=== PATIENT | male | born 1955 | race Caucasian/White ===

== ENCOUNTER 2017-12-14 16:23 | Emergency (ER) | payer OTHER ==
--- NOTE | 2017-12-14 17:22 | EDM.PDOC ---
ED HPI GENERAL MEDICAL PROBLEM - General Chief Complaint: Respiratory Problem Stated Complaint: PT HAS FLU SYMPTOMS Time Seen by Provider: 12/14/17 17:05 Source of Information: Reports: Patient History Limitations: Reports: No Limitations - History of Present Illness INITIAL COMMENTS - FREE TEXT/NARRATIVE: HISTORY AND PHYSICAL: History of present illness: [Patient comes to the emergency room complaining of body aches, headache, dry hacking cough, fever and chills for the past 3 days. He has not been taking any medications for his symptoms, but has been taking his regular prescribed medications. Denies chest pain, shortness of breath and difficulty breathing. No abdominal pain, nausea or vomiting. He does not have much appetite due to his symptoms. Denies earaches, runny nose and sore throat. Suspects that he may have influenza. History of VT approximately 6 months ago.] Review of systems: As per history of present illness and below otherwise all systems reviewed and negative. Past medical history: As per history of present illness and as reviewed below otherwise noncontributory. Surgical history: As per history of present illness and as reviewed below otherwise noncontributory. Social history: No reported history of drug or alcohol abuse. Family history: As per history of present illness and as reviewed below otherwise noncontributory. Physical exam: HEENT: Atraumatic, normocephalic. TMs are pearly basurto and without erythema or effusion. Oral mucous membranes are pink and moist. No tonsillar swelling erythema or exudate. Neck supple, no lymphadenopathy. Lungs: Clear to auscultation, breath sounds equal bilaterally. No wheezing crackles or rales. Heart: S1S2, regular rate and rhythm. Abdomen: Soft, nondistended, nontender. Pelvis: Stable nontender. Genitourinary: Deferred. Rectal: Deferred. Extremities: Atraumatic. Neurovascular unremarkable. Neuro: Awake, alert, oriented. Motor and sensory unremarkable throughout. Exam nonfocal. Diagnostics: [Influenza swab] Impression: [Viral illness] Plan: [Influenza swab is negative. Discussed with patient that he appears to have a virus and recommend symptomatic treatment. Push fluids, get plenty of rest. Tylenol alternating with ibuprofen as needed for fever or discomfort. patients in agreement with today's plan. All questions are answered and concerns are addressed.] Definitive disposition and diagnosis as appropriate pending reevaluation and review of above. - Related Data Allergies Allergy/AdvReac Type Severity Reaction Status Date / Time No Known Allergies Allergy Verified 12/14/17 16:55 Home Meds: Home Meds Aspirin 1 tab PO DAILY 12/14/17 [History] Clopidogrel [Plavix] 75 mg PO DAILY 12/14/17 [History] Isosorbide Mononitrate [Imdur] 30 mg PO DAILY 12/14/17 [History] Metoprolol Succinate [Toprol XL] 25 mg PO DAILY 12/14/17 [History] Pioglitazone [Actos] 30 mg PO DAILY 12/14/17 [History] metFORMIN [Glucophage] 850 mg PO DAILY 12/14/17 [History] Past Medical History - Past Health History Medical/Surgical History: Denies Medical/Surgical History Cardiovascular History: Reports: Hypertension Endocrine/Metabolic History: Reports: Diabetes, Type II Social & Family History - Family History Family Medical History: Noncontributory - Tobacco Use Smoking Status *Q: Current Every Day Smoker Years of Tobacco use: 45 Packs/Tins Daily: 1 - Recreational Drug Use Recreational Drug Use: No ED ROS GENERAL - Review of Systems Review Of Systems: ROS reveals no pertinent complaints other than HPI. ED EXAM, GENERAL - Physical Exam Exam: See Below Course - Vital Signs Last Recorded V/S: Last Vital Signs Temp 99.5 F 12/14/17 18:17 Pulse 95 12/14/17 18:17 Resp 18 12/14/17 18:17 BP 178/89 H 12/14/17 18:17 Pulse Ox 92 L 12/14/17 18:17 Departure - Departure Time of Disposition: 18:10 Disposition: Home, Self-Care 01 Condition: Good Clinical Impression: Viral illness - Discharge Information Instructions: Viral Respiratory Infection, [id number] Referrals: PCP,None [Primary Care Provider] - Forms: ED Department Discharge Additional Instructions: The following information is given to patients seen in the emergency department who are being discharged to home. This information is to outline your options for follow-up care. We provide all patients seen in our emergency department with a follow-up referral. The need for follow-up, as well as the timing and circumstances, are variable depending upon the specifics of your emergency department visit. If you don't have a primary care physician on staff, we will provide you with a referral. We always advise you to contact your personal physician following an emergency department visit to inform them of the circumstance of the visit and for follow-up with them and/or the need for any referrals to a consulting specialist. The emergency department will also refer you to a specialist when appropriate. This referral assures that you have the opportunity for follow-up care with a specialist. All of these measure are taken in an effort to provide you with optimal care, which includes your follow-up. Under all circumstances we always encourage you to contact your private physician who remains a resource for coordinating your care. When calling for follow-up care, please make the office aware that this follow-up is from your recent emergency room visit. If for any reason you are refused follow-up, please contact the [facility] emergency department at and asked to speak to the emergency department charge nurse. [facility] [address] [place] [id number] Follow-up with your primary care provider at the clinic listed above in 48-72 hours. Push fluids, get plenty of rest. Tylenol as needed for fever or discomfort. Return to ER as needed as discussed.
== END 2017-12-14 18:17 | disposition home or self-care (01) ==
LOC: MW.ED 16:23
DX: B34.9 Viral infection, unspecified (principal); I10 Essential (primary) hypertension; E11.9 Type 2 diabetes mellitus without complications; F17.210 Nicotine dependence, cigarettes, uncomplicated; Z79.82 Long term (current) use of aspirin; Z79.84 Long term (current) use of oral hypoglycemic drugs; Z79.899 Other long term (current) drug therapy
CPT/HCPCS: 87804; 99283

== ENCOUNTER 2018-07-02 12:26 | Observation (INO) | payer OTHER ==
[2018-07-02] MEDS ORDERED: Sodium Chloride 0.9% 10 ML Syringe FLUSH PRN ×2 (12:40→17:04)
[2018-07-02] MEDS ORDERED: Albuterol/Ipratropium 3.0-0.5 MG/3 ML Neb Soln NEB ONE (12:40)
[2018-07-02] MEDS ORDERED: Sodium Chloride 0.9% 2.5 ML Syringe FLUSH PRN ×2 (12:40→17:04)
[2018-07-02] MEDS ORDERED: Aspirin 81 MG Tab.Chew PO ONE (12:40)
--- NOTE | 2018-07-02 12:44 | EDM.PDOC ---
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 The patient tells me his last heart catheter was the beginning of November of this year and they did not have to do a stent and everything looked "good". He says he is compliant with his medications and he is here working. He says that he had a normal day yesterday and awoke this morning and was having a normal morning when at partially 9 AM, 3-1/2 hours ago he started having left-sided chest pain and pressure which he rated as a 5/10. He said he did radiate to his right shoulder but he didn't go to his jaw or back. There was no associated nausea vomiting or diaphoresis no lightheadedness and no shortness of breath. The patient took 3 baby aspirin at home and does not have nitroglycerin to take for chest pain. Because it persisted he came here but it is now rated as a 2/10 and his pressure the patient says he has no pulmonary disease but he does smoke a pack of cigarettes a day for a long time. Patient denies any drug use or alcohol use. He's had no upper respiratory symptoms no abdominal complaints and says that when he is at work here in [place] [employer] he does get some edema of his legs which is not new or different. He has no calf pain. Really he says the discomfort is minimal at a 2/10. Review of systems: As per history of present illness and below otherwise all systems reviewed and negative. Past medical history: As per history of present illness and as reviewed below otherwise noncontributory. Surgical history: As per history of present illness and as reviewed below otherwise noncontributory. Social history: No reported history of drug or alcohol abuse. Family history: As per history of present illness and as reviewed below otherwise noncontributory. Physical exam: General: Well-developed well-nourished overweight man who is nontoxic and speaking clearly in the ED. He has some noisy breathing on my evaluation and he is in good spirits and cooperative. HEENT: Atraumatic, normocephalic, negative for conjunctival pallor or scleral icterus, mucous membranes moist, throat clear, neck supple, nontender, trachea midline. Lungs: Clear to auscultation with diminished air exchange in the bases and some fine expiratory wheezing bilaterally, breath sounds equal bilaterally, chest nontender. Heart: S1S2, regular rate and rhythm no overt murmurs Abdomen: Soft, nondistended, nontender. Negative for masses or hepatosplenomegaly. NABS Pelvis: Stable nontender. Genitourinary: Deferred. Rectal: Deferred. Extremities: Atraumatic, negative for cords or calf pain. Neurovascular unremarkable. 1+ pitting edema bilaterally but there is no leg asymmetry or tenderness. Neuro: Awake, alert, oriented. Cranial nerves II through XII unremarkable. Cerebellum unremarkable. Motor and sensory unremarkable throughout. Exam nonfocal. Skin: There are no overt rashes or lesions and no diaphoresis turgor is normal Diagnostics: EKG chest x-ray CBC CMP INR troponin BNP Therapeutics: IV O2 monitor dual neb one baby aspirin, patient took 3 baby aspirins prior to coming here, nitroglycerin sublingual, nitroglycerin paste Patient states that after 1 nitroglycerin his pain is "almost gone" so he was given a second nitroglycerin sublingual and will get 1 inch of nitro paste. I will continue to monitor his workup and disposition appropriately He Has been pain-free and case was discussed with the hospitalist Dr. Awad at 1410 who accepts the patient for admission. He is aware of all testing care results and the need for admission and is excepting. Impression: Chest pain rule out ACS Definitive disposition and diagnosis as appropriate pending reevaluation and review of above. chest Pain Score (Numeric/FACES): 2 - Related Data Allergies Allergy/AdvReac Type Severity Reaction Status Date / Time No Known Allergies Allergy Verified 07/02/18 12:37 Home Meds: Home Meds Aspirin 1 tab PO DAILY 12/14/17 [History] Clopidogrel [Plavix] 75 mg PO DAILY 12/14/17 [History] Isosorbide Mononitrate [Imdur] 30 mg PO DAILY 12/14/17 [History] Metoprolol Succinate [Toprol XL] 25 mg PO DAILY 12/14/17 [History] Pioglitazone [Actos] 30 mg PO DAILY 12/14/17 [History] metFORMIN [Glucophage] 850 mg PO DAILY 12/14/17 [History] Past Medical History - Past Health History Medical/Surgical History: Denies Medical/Surgical History Cardiovascular History: Reports: Hypertension Endocrine/Metabolic History: Reports: Diabetes, Type II Social & Family History - Family History Family Medical History: Noncontributory ED ROS GENERAL - Review of Systems Review Of Systems: ROS reveals no pertinent complaints other than HPI. ED EXAM, GENERAL - Physical Exam Exam: See Below (See dictation) Course - Vital Signs Last Recorded V/S: Last Vital Signs Temp 36.9 C 07/02/18 12:34 Pulse 91 07/02/18 12:34 Resp 14 07/02/18 12:34 BP 170/89 H 07/02/18 12:50 Pulse Ox 94 L 07/02/18 12:34 - Orders/Labs/Meds Orders: Active Orders 24 hr Category Date Time Status Patient Status [ADT] Stat ADT 07/02/18 14:10 Ordered Cardiac Monitoring [RC] . DIRECTED Care 07/02/18 12:39 Active EKG Documentation Completion [RC] STAT Care 07/02/18 12:39 Active Oxygen Therapy, ED [RC] ASDIRECTED Care 07/02/18 12:39 Active Pulse Oximetry [RC] ASDIRECTED Care 07/02/18 12:39 Active RT Aerosol Therapy [RC] ASDIRECTED Care 07/02/18 12:40 Active Nitroglycerin [Nitrostat] Med 07/02/18 12:40 Active 0.4 mg SL Q5M PRN Sodium Chloride 0.9% [Saline Flush] Med 07/02/18 12:40 Active 10 ml FLUSH ASDIRECTED PRN Sodium Chloride 0.9% [Saline Flush] Med 07/02/18 12:40 Active 2.5 ml FLUSH ASDIRECTED PRN Saline Lock Insert [OM.PC] Stat Oth 07/02/18 12:39 Ordered Medication Orders Nitroglycerin (Nitrostat) 0.4 mg SL Q5M PRN PRN Reason: Chest Pain Last Admin: 07/02/18 12:50 Dose: 0.4 mg Admin: 07/02/18 12:45 Dose: 0.4 mg Sodium Chloride (Saline Flush) 10 ml FLUSH ASDIRECTED PRN PRN Reason: Keep Vein Open Sodium Chloride (Saline Flush) 2.5 ml FLUSH ASDIRECTED PRN PRN Reason: Keep Vein Open Labs: Laboratory Tests 07/02/18 07/02/18 07/02/18 Range/Units 12:39 12:39 12:39 WBC 11.59 H (4.0-11.0) K/uL RBC 5.54 (4.50-5.90) M/uL Hgb 16.9 (13.0-17.0) g/dL Hct 49.5 (38.0-50.0) % MCV 89.4 (80.0-98.0) fL MCH 30.5 (27.0-32.0) pg MCHC 34.1 (31.0-37.0) g/dL RDW Std Deviation 45.1 (28.0-62.0) fl RDW Coeff of [place] 14 (11.0-15.0) % Plt Count 158 (150-400) K/uL MPV 10.50 (7.40-12.00) fL Neut % (Auto) 74.1 (48.0-80.0) % Lymph % (Auto) 17.6 (16.0-40.0) % [place] % (Auto) 7.2 (0.0-15.0) % Eos % (Auto) 0.9 (0.0-7.0) % Baso % (Auto) 0.2 (0.0-1.5) % Neut # (Auto) 8.6 H (1.4-5.7) K/uL Lymph # (Auto) 2.0 (0.6-2.4) K/uL [place] # (Auto) 0.8 (0.0-0.8) K/uL Eos # (Auto) 0.1 (0.0-0.7) K/uL Baso # (Auto) 0.0 (0.0-0.1) K/uL Nucleated RBC % 0.0 /100WBC Nucleated RBCs # 0 K/uL INR 1.07 Sodium 137 (136-148) mmol/L Potassium 3.9 (3.5-5.1) mmol/L Chloride 101 (98-107) mmol/L Carbon Dioxide 27.1 (21.0-32.0) mmol/L BUN 15 (7.0-18.0) mg/dL Creatinine 1.0 (0.8-1.3) mg/dL Est Cr Clr Drug Dosing 81.11 mL/min Estimated GFR (MDRD) > 60.0 ml/min Glucose 143 H (74-106) mg/dL Calcium 9.6 (8.5-10.1) mg/dL Total Bilirubin 0.5 (0.2-1.0) mg/dL AST 16 (15-37) IU/L ALT 31 (14-63) IU/L Alkaline Phosphatase 105 (46-116) U/L Troponin I < 0.050 (0.000-0.056) ng/mL B-Natriuretic Peptide (<100) PG/ML Total Protein 8.0 (6.4-8.2) g/dL Albumin 4.0 (3.4-5.0) g/dL Globulin 4.0 H (2.0-3.5) g/dL Albumin/Globulin Ratio 1.0 L (1.3-2.8) 07/02/18 Range/Units 12:39 WBC (4.0-11.0) K/uL RBC (4.50-5.90) M/uL Hgb (13.0-17.0) g/dL Hct (38.0-50.0) % MCV (80.0-98.0) fL MCH (27.0-32.0) pg MCHC (31.0-37.0) g/dL RDW Std Deviation (28.0-62.0) fl RDW Coeff of [place] (11.0-15.0) % Plt Count (150-400) K/uL MPV (7.40-12.00) fL Neut % (Auto) (48.0-80.0) % Lymph % (Auto) (16.0-40.0) % [place] % (Auto) (0.0-15.0) % Eos % (Auto) (0.0-7.0) % Baso % (Auto) (0.0-1.5) % Neut # (Auto) (1.4-5.7) K/uL Lymph # (Auto) (0.6-2.4) K/uL [place] # (Auto) (0.0-0.8) K/uL Eos # (Auto) (0.0-0.7) K/uL Baso # (Auto) (0.0-0.1) K/uL Nucleated RBC % /100WBC Nucleated RBCs # K/uL INR Sodium (136-148) mmol/L Potassium (3.5-5.1) mmol/L Chloride (98-107) mmol/L Carbon Dioxide (21.0-32.0) mmol/L BUN (7.0-18.0) mg/dL Creatinine (0.8-1.3) mg/dL Est Cr Clr Drug Dosing mL/min Estimated GFR (MDRD) ml/min Glucose (74-106) mg/dL Calcium (8.5-10.1) mg/dL Total Bilirubin (0.2-1.0) mg/dL AST (15-37) IU/L ALT (14-63) IU/L Alkaline Phosphatase (46-116) U/L Troponin I (0.000-0.056) ng/mL B-Natriuretic Peptide 56 (<100) PG/ML Total Protein (6.4-8.2) g/dL Albumin (3.4-5.0) g/dL Globulin (2.0-3.5) g/dL Albumin/Globulin Ratio (1.3-2.8) Meds: Medications Generic Name Dose Route Start Last Admin Trade Name Freq PRN Reason Stop Dose Admin Nitroglycerin 0.4 mg 07/02/18 12:40 07/02/18 12:50 Nitrostat SL 0.4 mg Q5M PRN Administration Chest Pain Sodium Chloride 10 ml 07/02/18 12:40 Saline Flush FLUSH ASDIRECTED PRN Keep Vein Open Sodium Chloride 2.5 ml 07/02/18 12:40 Saline Flush FLUSH ASDIRECTED PRN Keep Vein Open Discontinued Medications Generic Name Dose Route Start Last Admin Trade Name Freq PRN Reason Stop Dose Admin Albuterol/Ipratropium 3 ml 07/02/18 12:40 07/02/18 12:46 Duoneb 3.0-0.5 Mg/3 Ml NEB 07/02/18 12:41 3 ml ONETIME ONE Administration Aspirin 81 mg 07/02/18 12:40 07/02/18 12:44 Aspirin PO 07/02/18 12:41 81 mg ONETIME ONE Administration Nitroglycerin 1 gm 07/02/18 12:52 07/02/18 12:59 Nitro-Bid 2% TOP 07/02/18 12:53 1 gm ONETIME ONE Administration Departure - Departure Time of Disposition: 14:17 Disposition: Refer to Observation Condition: Good Clinical Impression: Acute coronary syndrome - Discharge Information Forms: ED Department Discharge - My Orders Last 24 Hours: My Active Orders 07/02/18 12:39 Cardiac Monitoring [RC] . DIRECTED EKG Documentation Completion [RC] STAT Oxygen Therapy, ED [RC] ASDIRECTED Pulse Oximetry [RC] ASDIRECTED Saline Lock Insert [OM.PC] Stat 07/02/18 12:40 RT Aerosol Therapy [RC] ASDIRECTED Nitroglycerin [Nitrostat] 0.4 mg SL Q5M PRN Sodium Chloride 0.9% [Saline Flush] 10 ml FLUSH ASDIRECTED PRN Sodium Chloride 0.9% [Saline Flush] 2.5 ml FLUSH ASDIRECTED PRN 07/02/18 14:10 Patient Status [ADT] Stat - Assessment/Plan Last 24 Hours: My Active Orders 07/02/18 12:39 Cardiac Monitoring [RC] . DIRECTED EKG Documentation Completion [RC] STAT Oxygen Therapy, ED [RC] ASDIRECTED Pulse Oximetry [RC] ASDIRECTED Saline Lock Insert [OM.PC] Stat 07/02/18 12:40 RT Aerosol Therapy [RC] ASDIRECTED Nitroglycerin [Nitrostat] 0.4 mg SL Q5M PRN Sodium Chloride 0.9% [Saline Flush] 10 ml FLUSH ASDIRECTED PRN Sodium Chloride 0.9% [Saline Flush] 2.5 ml FLUSH ASDIRECTED PRN 07/02/18 14:10 Patient Status [ADT] Stat
[2018-07-02] MEDS: Nitroglycerin 0.4 MG Tab.SL SL PRN ×2 (12:45→12:50)
[2018-07-02] MEDS ORDERED: Nitroglycerin 2% Oint 1 GM UD Packet TOP ONE (12:52)
[2018-07-02 13:51] LABS: CHLORIDE,CL 101 mmol/L (98-107); SODIUM,NA 137 mmol/L (136-148)
--- NOTE | 2018-07-02 14:00 | CR ---
EXAMINATION: Portable chest radiograph. HISTORY: Shortness of breath. FINDINGS: The trachea is midline. The cardiomediastinal silhouette is within normal limits. No pulmonary infilt rates, effusions or pneumothorax. Mild bibasilar atelectasis and/or infiltrate. Osseous structures appear unremarkable. IMPRESSION: Mild bibasilar atelectasis and/or infiltrate.
[2018-07-02] MEDS ORDERED: Acetaminophen 325 MG Tab PO PRN (17:04)
[2018-07-02] MEDS ORDERED: Morphine 2 MG/ML Syringe IVPUSH PRN (17:04)
[2018-07-02] MEDS ORDERED: atorvaSTATin 40 MG Tab PO ONE (18:10)
[2018-07-02] MEDS ORDERED: Labetalol 100 MG/20 ML MDV IVPUSH PRN (19:31)
[2018-07-02] MEDS ORDERED: Labetalol 20 MG/4 ML Syringe ONE (20:15)
--- NOTE | 2018-07-02 22:02 | PCM.HP ---
H&P History of Present Illness - General Date of Service: 07/02/18 Admit Problem/Dx: Admission Diagnosis/Problem Admission Diagnosis/Problem Acute coronary syndrome Source of Information: Patient History Limitations: Reports: No Limitations - History of Present Illness Initial Comments - Free Text/Narative: Patient 62 y old man with Hx of VA in April 2017 s/p stent in [place] who is still smoking 1 PPD presented to ER today due to chest pain that was localized left side of chest and was pressure-like 5/10 intensity. Patient already smoked few ciggarets by the time the chest pain started. 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 His pain lasted for about 3 h as per patient and was getting better , subsided completely in Er with Nitroglycerin. Patient BP at arrival in Er was 233/127 Hr91. He had stress test done in November 2017 and was told was normal Duration of Symptoms: Reports: Hour(s): Location: Reports: Chest Quality: Reports: Pressure chest Pain Score (Numeric/FACES): 2 - Related Data Allergies/Adverse Reactions: Allergies Allergy/AdvReac Type Severity Reaction Status Date / Time No Known Allergies Allergy Verified 07/02/18 12:37 Home Medications: Home Meds Aspirin 1 tab PO DAILY 12/14/17 [History] Clopidogrel [Plavix] 75 mg PO DAILY 12/14/17 [History] Isosorbide Mononitrate [Imdur] 30 mg PO DAILY 12/14/17 [History] Metoprolol Succinate [Toprol XL] 25 mg PO DAILY 12/14/17 [History] Pioglitazone [Actos] 30 mg PO DAILY 12/14/17 [History] metFORMIN [Glucophage] 850 mg PO DAILY 12/14/17 [History] Past Medical History - Past Health History Medical/Surgical History: Denies Medical/Surgical History Cardiovascular History: Reports: Hypertension, [place] Endocrine/Metabolic History: Reports: Diabetes, Type II - Infectious Disease History Infectious Disease History: Reports: Chicken Pox, Measles, Mumps, Shingles - Past Surgical History Cardiovascular Surgical History: Reports: Other (See Below) Other Cardiovascular Surgeries/Procedures: stent april 2017 Social & Family History - Family History Family Medical History: Noncontributory - Tobacco Use Smoking Status *Q: Current Every Day Smoker Years of Tobacco use: 40 Packs/Tins Daily: 1 Used Tobacco, but Quit: No Second Hand Smoke Exposure: No - Caffeine Use Caffeine Use: Reports: Soda - Alcohol Use Days Per Week of Alcohol Use: 1 Number of Drinks Per Day: 6 Total Drinks Per Week: 6 - Recreational Drug Use Recreational Drug Use: No H&P Review of Systems - Review of Systems: Review Of Systems: See Below General: Reports: No Symptoms HEENT: Reports: No Symptoms Pulmonary: Reports: No Symptoms Cardiovascular: Reports: Chest Pain Gastrointestinal: Reports: No Symptoms Genitourinary: Reports: No Symptoms Musculoskeletal: Reports: No Symptoms Skin: Reports: No Symptoms Psychiatric: Reports: No Symptoms Hematologic/Lymphatic: Reports: No Symptoms Exam - Exam Exam: See Below - Vital Signs Vital Signs: Last Vital Signs Temp 97.3 F 07/02/18 19:57 Pulse 71 07/02/18 20:59 Resp 18 07/02/18 19:57 BP 185/89 H 07/02/18 20:59 Pulse Ox 93 L 07/02/18 19:57 Weight: 298 lb 8 oz - Exam General: Alert, Oriented HEENT: Conjunctiva Clear Neck: Supple, Trachea Midline Lungs: Decreased Breath Sounds Cardiovascular: Regular Rate, Regular Rhythm, Normal S1, Normal S2 GI/Abdominal Exam: Normal Bowel Sounds, Soft, Non-Tender, No Organomegaly Back Exam: Normal Inspection Extremities: Normal Inspection, Normal Range of Motion Skin: Warm, Dry Neurological: Cranial Nerves Intact Neuro Extensive - Mental Status: Alert, Oriented x3 Neuro Extensive - Motor, Sensory, Reflexes: CN II-XII Intact Psychiatric: Alert, Normal Affect - Patient Data Lab Results Last 24 hrs: Laboratory Results - last 24 hr 07/02/18 07/02/18 07/02/18 Range/Units 12:39 12:39 12:39 WBC 11.59 H (4.0-11.0) K/uL RBC 5.54 (4.50-5.90) M/uL Hgb 16.9 (13.0-17.0) g/dL Hct 49.5 (38.0-50.0) % MCV 89.4 (80.0-98.0) fL MCH 30.5 (27.0-32.0) pg MCHC 34.1 (31.0-37.0) g/dL RDW Std Deviation 45.1 (28.0-62.0) fl RDW Coeff of [place] 14 (11.0-15.0) % Plt Count 158 (150-400) K/uL MPV 10.50 (7.40-12.00) fL Neut % (Auto) 74.1 (48.0-80.0) % Lymph % (Auto) 17.6 (16.0-40.0) % [place] % (Auto) 7.2 (0.0-15.0) % Eos % (Auto) 0.9 (0.0-7.0) % Baso % (Auto) 0.2 (0.0-1.5) % Neut # (Auto) 8.6 H (1.4-5.7) K/uL Lymph # (Auto) 2.0 (0.6-2.4) K/uL [place] # (Auto) 0.8 (0.0-0.8) K/uL Eos # (Auto) 0.1 (0.0-0.7) K/uL Baso # (Auto) 0.0 (0.0-0.1) K/uL Nucleated RBC % 0.0 /100WBC Nucleated RBCs # 0 K/uL INR 1.07 Sodium 137 (136-148) mmol/L Potassium 3.9 (3.5-5.1) mmol/L Chloride 101 (98-107) mmol/L Carbon Dioxide 27.1 (21.0-32.0) mmol/L BUN 15 (7.0-18.0) mg/dL Creatinine 1.0 (0.8-1.3) mg/dL Est Cr Clr Drug Dosing 81.11 mL/min Estimated GFR (MDRD) > 60.0 ml/min Glucose 143 H (74-106) mg/dL Calcium 9.6 (8.5-10.1) mg/dL Total Bilirubin 0.5 (0.2-1.0) mg/dL AST 16 (15-37) IU/L ALT 31 (14-63) IU/L Alkaline Phosphatase 105 (46-116) U/L Troponin I < 0.050 (0.000-0.056) ng/mL B-Natriuretic Peptide (<100) PG/ML Total Protein 8.0 (6.4-8.2) g/dL Albumin 4.0 (3.4-5.0) g/dL Globulin 4.0 H (2.0-3.5) g/dL Albumin/Globulin Ratio 1.0 L (1.3-2.8) 07/02/18 07/02/18 Range/Units 12:39 18:15 WBC (4.0-11.0) K/uL RBC (4.50-5.90) M/uL Hgb (13.0-17.0) g/dL Hct (38.0-50.0) % MCV (80.0-98.0) fL MCH (27.0-32.0) pg MCHC (31.0-37.0) g/dL RDW Std Deviation (28.0-62.0) fl RDW Coeff of [place] (11.0-15.0) % Plt Count (150-400) K/uL MPV (7.40-12.00) fL Neut % (Auto) (48.0-80.0) % Lymph % (Auto) (16.0-40.0) % [place]ke[place] % (Auto) (0.0-15.0) % Eos % (Auto) (0.0-7.0) % Baso % (Auto) (0.0-1.5) % Neut # (Auto) (1.4-5.7) K/uL Lymph # (Auto) (0.6-2.4) K/uL [place]ke[place] # (Auto) (0.0-0.8) K/uL Eos # (Auto) (0.0-0.7) K/uL Baso # (Auto) (0.0-0.1) K/uL Nucleated RBC % /100WBC Nucleated RBCs # K/uL INR Sodium (136-148) mmol/L Potassium (3.5-5.1) mmol/L Chloride (98-107) mmol/L Carbon Dioxide (21.0-32.0) mmol/L BUN (7.0-18.0) mg/dL Creatinine (0.8-1.3) mg/dL Est Cr Clr Drug Dosing mL/min Estimated GFR (MDRD) ml/min Glucose (74-106) mg/dL Calcium (8.5-10.1) mg/dL Total Bilirubin (0.2-1.0) mg/dL AST (15-37) IU/L ALT (14-63) IU/L Alkaline Phosphatase (46-116) U/L Troponin I < 0.050 (0.000-0.056) ng/mL B-Natriuretic Peptide 56 (<100) PG/ML Total Protein (6.4-8.2) g/dL Albumin (3.4-5.0) g/dL Globulin (2.0-3.5) g/dL Albumin/Globulin Ratio (1.3-2.8) Result Diagrams: 07/02/18 12:39 07/02/18 12:39 EKG INTERPRETATION EKG Date: 07/01/18 Rhythm: NSR [place]: LAD-Left [place] Deviation P-Wave: Present QRS: Wide ST-T: Normal QT: Normal PA/PQ Interval: prolonged, inferior infarct - Problem List (1) Chest pain, rule out acute myocardial infarction SNOMED Code(s): 48414461 ICD Code: R07.9 - CHEST PAIN, UNSPECIFIED Status: Acute Current Visit: Yes (2) Diabetes mellitus, insulin dependent (IDDM), controlled SNOMED Code(s): 08973858 ICD Code: E11.9 - TYPE 2 DIABETES MELLITUS WITHOUT COMPLICATIONS; 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 Status: Acute Current Visit: Yes (3) History of heart artery stent SNOMED Code(s): 481566608, 686548061 ICD Code: Z95.5 - PRESENCE OF CORONARY ANGIOPLASTY IMPLANT AND GRAFT Status : Acute Current Visit: Yes (4) Hyperlipidemia SNOMED Code(s): 73572288 ICD Code: E78.5 - HYPERLIPIDEMIA, UNSPECIFIED Status: Acute Current Visit : Yes (5) Hypertension SNOMED Code(s): 62034088 ICD Code: I10 - ESSENTIAL (PRIMARY) HYPERTENSION Status: Acute Current Visit: Yes Qualifiers: Hypertension type: essential hypertension Qualified Code(s): I10 - Essential (primary) hypertension (6) Tobacco abuse disorder SNOMED Code(s): 584641021 ICD Code: Z72.0 - TOBACCO USE Status: Acute Current Visit: Yes (7) Hypertension, uncontrolled SNOMED Code(s): 54578328, 99460143 ICD Code: I10 - ESSENTIAL (PRIMARY) HYPERTENSION Status: Acute Current Visit: Yes Problem List Initiated/Reviewed/Updated: Yes Orders Last 24hrs: Active Orders 24 hr Category Date Time Status Patient Status [ADT] Stat ADT 07/02/18 14:10 Active Cardiac Monitoring [RC] . DIRECTED Care 07/02/18 12:39 Active Cardiac Monitoring [RC] CONTINUOUS Care 07/02/18 17:05 Active Communication Order [RC] DAILY Care 07/02/18 21:18 Active Oxygen Therapy [RC] PRN Care 07/02/18 17:04 Active Pulse Oximetry [RC] ASDIRECTED Care 07/02/18 12:39 Active Pulse Oximetry [RC] PRN Care 07/02/18 17:05 Active RT Aerosol Therapy [RC] ASDIRECTED Care 07/02/18 12:40 Active Telemetry Monitoring [Cardiac Monitoring] [RC] . Care 07/02/18 15:44 Active DIRECTED Up ad Priya [RC] ASDIRECTED Care 07/02/18 17:04 Active Vital Signs [RC] Q4H Care 07/02/18 17:04 Active Heart Healthy Diet [DIET] Diet 07/03/18 Breakfast Active CBC W/O DIFF,HEMOGRAM [HEME] AM Lab 07/03/18 05:11 Ordered CBC W/O DIFF,HEMOGRAM [HEME] AM Lab 07/04/18 05:11 Ordered CBC W/O DIFF,HEMOGRAM [HEME] AM Lab 07/05/18 05:11 Ordered COMPREHENSIVE METABOLIC PN,CMP [CHEM] AM Lab 07/03/18 05:11 Ordered COMPREHENSIVE METABOLIC PN,CMP [CHEM] AM Lab 07/04/18 05:11 Ordered COMPREHENSIVE METABOLIC PN,CMP [CHEM] AM Lab 07/05/18 05:11 Ordered COMPREHENSIVE METABOLIC PN,CMP [CHEM] AM Lab 07/06/18 05:11 Ordered TROPONIN I [CHEM] Q6H Lab 07/03/18 00:00 Ordered Acetaminophen [Tylenol] Med 07/02/18 17:04 Active 650 mg PO Q4H PRN Aspirin Med 07/03/18 09:00 Active 81 mg PO DAILY Clopidogrel [Plavix] Med 07/03/18 09:00 Active 75 mg PO DAILY Insulin Aspart [NovoLOG] Med 07/03/18 07:30 Active See Protocol SUBCUT TIDAC Isosorbide Mononitrate [Imdur] Med 07/03/18 09:00 Active 30 mg PO DAILY Labetalol [Normodyne] Med 07/02/18 19:31 Active 20 mg IVPUSH Q4H PRN Metoprolol Succinate [Toprol XL] Med 07/03/18 09:00 Active 25 mg PO DAILY Morphine Med 07/02/18 17:04 Active 2 mg IVPUSH Q2H PRN Nitroglycerin [Nitrostat] Med 07/02/18 12:40 Active 0.4 mg SL Q5M PRN Sodium Chloride 0.9% [Saline Flush] Med 07/02/18 12:40 Active 10 ml FLUSH ASDIRECTED PRN Sodium Chloride 0.9% [Saline Flush] Med 07/02/18 17:04 Active 10 ml FLUSH ASDIRECTED PRN Sodium Chloride 0.9% [Saline Flush] Med 07/02/18 12:40 Active 2.5 ml FLUSH ASDIRECTED PRN Sodium Chloride 0.9% [Saline Flush] Med 07/02/18 17:04 Active 2.5 ml FLUSH ASDIRECTED PRN Peripheral IV Insertion Adult [OM.PC] Routine Oth 07/02/18 17:04 Ordered Saline Lock Insert [OM.PC] Stat Oth 07/02/18 12:39 Ordered Sequential Compression Device [OM.PC] Per Unit Routine Oth 07/02/18 17:05 Ordered Resuscitation Status Routine Resus Stat 07/02/18 17:04 Ordered Medication Orders Acetaminophen (Tylenol) 650 mg PO Q4H PRN PRN Reason: Pain (Mild 1-3)/fever Aspirin (Aspirin) 81 mg PO DAILY [facility] Clopidogrel Bisulfate (Plavix) 75 mg PO DAILY [facility] Insulin Aspart (Novolog) 0 unit SUBCUT TIDAC [facility]; Protocol Isosorbide Mononitrate (Imdur) 30 mg PO DAILY [facility] Labetalol HCl (Normodyne) 20 mg IVPUSH Q4H PRN; Protocol PRN Reason: Hypertension Last Admin: 07/02/18 20:59 Dose: 20 mg Metoprolol Succinate (Toprol Xl) 25 mg PO DAILY [facility] Morphine Sulfate (Morphine) 2 mg IVPUSH Q2H PRN PRN Reason: Pain (severe 7-10) Stop: 07/03/18 17:06 Nitroglycerin (Nitrostat) 0.4 mg SL Q5M PRN PRN Reason: Chest Pain Last Admin: 07/02/18 12:50 Dose: 0.4 mg Admin: 07/02/18 12:45 Dose: 0.4 mg Sodium Chloride (Saline Flush) 10 ml FLUSH ASDIRECTED PRN PRN Reason: Keep Vein Open Sodium Chloride (Saline Flush) 2.5 ml FLUSH ASDIRECTED PRN PRN Reason: Keep Vein Open Sodium Chloride (Saline Flush) 10 ml FLUSH ASDIRECTED PRN PRN Reason: Keep Vein Open Sodium Chloride (Saline Flush) 2.5 ml FLUSH ASDIRECTED PRN PRN Reason: Keep Vein Open Unstable angina due to smoking and u/c HTN - will f/up cardiac enzymes times 3 , telemetry q 6 h , patient on aspirin and plavix , imdur 30 mg po daily , metoprolol 25 mg po daily patient was given one dose of atorvastaine 80 mg po , will continue patient with atorvastatin 80 mg po at bedtime . He was given in Er one dose of Lovenox 1mg/kg , will continue patient with lovenox full dose q 12 h , BP control .Patient was advised to stop smoking, lipid panel , Hb A1 c in am, cardiac ECHo For HtN urgency will give patient labetalol 20 mg iv q 4 h prn for SBP more than 160 For DM: insulin aspart on sliding scale ac TID and at bedtime, hold po medications
[2018-07-03 05:44] LABS: CHLORIDE,CL 104 mmol/L (98-107); SODIUM,NA 139 mmol/L (136-148)
[2018-07-03] MEDS: Enoxaparin 150 MG/1 ML Syringe SUBCUT SCH ×2 (06:03→18:10)
[2018-07-03] MEDS: Insulin Aspart 100 Units/ML 3 ML Pen SUBCUT SCH ×3 (07:30→17:33)
[2018-07-03] MEDS: Isosorbide Mononitrate 30 MG Tab.ER PO SCH (08:57)
[2018-07-03] MEDS: Aspirin 81 MG Tab.Chew PO SCH (08:58)
[2018-07-03] MEDS: Metoprolol Succinate 25 MG Tab.ER PO SCH (08:58)
[2018-07-03] MEDS: Clopidogrel 75 MG Tab PO SCH (08:58)
[2018-07-03] MEDS ORDERED: Hydrochlorothiazide/Losartan 12.5-50 mg Tab PO SCH (11:30)
[2018-07-03] MEDS ORDERED: Albuterol/Ipratropium 3.0-0.5 MG/3 ML Neb Soln NEB PRN (12:12)
--- NOTE | 2018-07-03 12:40 | PCM.PN ---
- General Info Date of Service: 07/03/18 Subjective Update: patient with no Cp , his BP in the morning elevated in 190 and repeat BP went down to 160. Patient was started on Losartan /HCTZ 50 mg po daily , BP still elevated , his BP medication was increased to 100/25 mg po daily. Bp still elevated in the evening , amlodipine 10 mg po was added. Patient snores at night , it was recommended sleep study . He will need sleep study prescription upon discharge. - Review of Systems General: Reports: No Symptoms HEENT: Reports: No Symptoms Pulmonary: Reports: Cough Cardiovascular: Reports: No Symptoms Gastrointestinal: Reports: No Symptoms Genitourinary: Reports: No Symptoms Musculoskeletal: Reports: No Symptoms Skin: Reports: No Symptoms Neurological: Reports: No Symptoms Psychiatric: Reports: No Symptoms - Patient Data Vitals - Most Recent: Last Vital Signs Temp 97.2 F 07/03/18 11:00 Pulse 69 07/03/18 11:00 Resp 18 07/03/18 11:00 BP 160/78 H 07/03/18 11:00 Pulse Ox 91 L 07/03/18 11:00 Weight - Most Recent: 298 lb 8 oz I&O - Last 24 Hours: Intake & Output 07/02/18 07/03/18 07/03/18 22:59 06:59 14:59 Intake Total 550 Output Total 600 Balance -50 Lab Results Last 24 Hours: Laboratory Results - last 24 hr 07/02/18 07/02/18 07/02/18 Range/Units 12:39 12:39 12:39 WBC 11.59 H (4.0-11.0) K/uL RBC 5.54 (4.50-5.90) M/uL Hgb 16.9 (13.0-17.0) g/dL Hct 49.5 (38.0-50.0) % MCV 89.4 (80.0-98.0) fL MCH 30.5 (27.0-32.0) pg MCHC 34.1 (31.0-37.0) g/dL RDW Std Deviation 45.1 (28.0-62.0) fl RDW Coeff of [place] 14 (11.0-15.0) % Plt Count 158 (150-400) K/uL MPV 10.50 (7.40-12.00) fL Neut % (Auto) 74.1 (48.0-80.0) % Lymph % (Auto) 17.6 (16.0-40.0) % [place] % (Auto) 7.2 (0.0-15.0) % Eos % (Auto) 0.9 (0.0-7.0) % Baso % (Auto) 0.2 (0.0-1.5) % Neut # (Auto) 8.6 H (1.4-5.7) K/uL Lymph # (Auto) 2.0 (0.6-2.4) K/uL [place] # (Auto) 0.8 (0.0-0.8) K/uL Eos # (Auto) 0.1 (0.0-0.7) K/uL Baso # (Auto) 0.0 (0.0-0.1) K/uL Nucleated RBC % 0.0 /100WBC Nucleated RBCs # 0 K/uL INR 1.07 Sodium 137 (136-148) mmol/L Potassium 3.9 (3.5-5.1) mmol/L Chloride 101 (98-107) mmol/L Carbon Dioxide 27.1 (21.0-32.0) mmol/L BUN 15 (7.0-18.0) mg/dL Creatinine 1.0 (0.8-1.3) mg/dL Est Cr Clr Drug Dosing 81.11 mL/min Estimated GFR (MDRD) > 60.0 ml/min Glucose 143 H (74-106) mg/dL POC Glucose (60-110) mg/dL Hemoglobin A1c (4.5-6.2) % Calcium 9.6 (8.5-10.1) mg/dL Total Bilirubin 0.5 (0.2-1.0) mg/dL AST 16 (15-37) IU/L ALT 31 (14-63) IU/L Alkaline Phosphatase 105 (46-116) U/L Troponin I < 0.050 (0.000-0.056) ng/mL B-Natriuretic Peptide (<100) PG/ML Total Protein 8.0 (6.4-8.2) g/dL Albumin 4.0 (3.4-5.0) g/dL Globulin 4.0 H (2.0-3.5) g/dL Albumin/Globulin Ratio 1.0 L (1.3-2.8) Triglycerides (0-200) mg/dL Cholesterol (50-200) mg/dL LDL Cholesterol, Calc (60-180) mg/dL VLDL Cholesterol (5-55) mg/dL HDL Cholesterol (40-60) mg/dL Cholesterol/HDL Ratio (3.3-6.0) 07/02/18 07/02/18 07/03/18 Range/Units 12:39 18:15 00:18 WBC (4.0-11.0) K/uL RBC (4.50-5.90) M/uL Hgb (13.0-17.0) g/dL Hct (38.0-50.0) % MCV (80.0-98.0) fL MCH (27.0-32.0) pg MCHC (31.0-37.0) g/dL RDW Std Deviation (28.0-62.0) fl RDW Coeff of [place] (11.0-15.0) % Plt Count (150-400) K/uL MPV (7.40-12.00) fL Neut % (Auto) (48.0-80.0) % Lymph % (Auto) (16.0-40.0) % [place] % (Auto) (0.0-15.0) % Eos % (Auto) (0.0-7.0) % Baso % (Auto) (0.0-1.5) % Neut # (Auto) (1.4-5.7) K/uL Lymph # (Auto) (0.6-2.4) K/uL [place] # (Auto) (0.0-0.8) K/uL Eos # (Auto) (0.0-0.7) K/uL Baso # (Auto) (0.0-0.1) K/uL Nucleated RBC % /100WBC Nucleated RBCs # K/uL INR Sodium (136-148) mmol/L Potassium (3.5-5.1) mmol/L Chloride (98-107) mmol/L Carbon Dioxide (21.0-32.0) mmol/L BUN (7.0-18.0) mg/dL Creatinine (0.8-1.3) mg/dL Est Cr Clr Drug Dosing mL/min Estimated GFR (MDRD) ml/min Glucose (74-106) mg/dL POC Glucose (60-110) mg/dL Hemoglobin A1c (4.5-6.2) % Calcium (8.5-10.1) mg/dL Total Bilirubin (0.2-1.0) mg/dL AST (15-37) IU/L ALT (14-63) IU/L Alkaline Phosphatase (46-116) U/L Troponin I < 0.050 < 0.050 (0.000-0.056) ng/mL B-Natriuretic Peptide 56 (<100) PG/ML Total Protein (6.4-8.2) g/dL Albumin (3.4-5.0) g/dL Globulin (2.0-3.5) g/dL Albumin/Globulin Ratio (1.3-2.8) Triglycerides (0-200) mg/dL Cholesterol (50-200) mg/dL LDL Cholesterol, Calc (60-180) mg/dL VLDL Cholesterol (5-55) mg/dL HDL Cholesterol (40-60) mg/dL Cholesterol/HDL Ratio (3.3-6.0) 07/03/18 07/03/18 07/03/18 Range/Units 04:50 04:50 04:50 WBC 9.16 (4.0-11.0) K/uL RBC 5.23 (4.50-5.90) M/uL Hgb 15.8 (13.0-17.0) g/dL Hct 46.9 (38.0-50.0) % MCV 89.7 (80.0-98.0) fL MCH 30.2 (27.0-32.0) pg MCHC 33.7 (31.0-37.0) g/dL RDW Std Deviation 45.5 (28.0-62.0) fl RDW Coeff of [place] 14 (11.0-15.0) % Plt Count 170 (150-400) K/uL MPV 10.40 (7.40-12.00) fL Neut % (Auto) (48.0-80.0) % Lymph % (Auto) (16.0-40.0) % [place] % (Auto) (0.0-15.0) % Eos % (Auto) (0.0-7.0) % Baso % (Auto) (0.0-1.5) % Neut # (Auto) (1.4-5.7) K/uL Lymph # (Auto) (0.6-2.4) K/uL [place] # (Auto) (0.0-0.8) K/uL Eos # (Auto) (0.0-0.7) K/uL Baso # (Auto) (0.0-0.1) K/uL Nucleated RBC % 0.0 /100WBC Nucleated RBCs # 0 K/uL INR Sodium 139 (136-148) mmol/L Potassium 4.0 (3.5-5.1) mmol/L Chloride 104 (98-107) mmol/L Carbon Dioxide 29.4 (21.0-32.0) mmol/L BUN 12 (7.0-18.0) mg/dL Creatinine 0.9 (0.8-1.3) mg/dL Est Cr Clr Drug Dosing 90.12 mL/min Estimated GFR (MDRD) > 60.0 ml/min Glucose 128 H (74-106) mg/dL POC Glucose (60-110) mg/dL Hemoglobin A1c 6.5 H (4.5-6.2) % Calcium 9.2 (8.5-10.1) mg/dL Total Bilirubin 0.7 (0.2-1.0) mg/dL AST 13 L (15-37) IU/L ALT 30 (14-63) IU/L Alkaline Phosphatase 99 (46-116) U/L Troponin I (0.000-0.056) ng/mL B-Natriuretic Peptide (<100) PG/ML Total Protein 7.4 (6.4-8.2) g/dL Albumin 3.7 (3.4-5.0) g/dL Globulin 3.7 H (2.0-3.5) g/dL Albumin/Globulin Ratio 1.0 L (1.3-2.8) Triglycerides 67 (0-200) mg/dL Cholesterol 115 (50-200) mg/dL LDL Cholesterol, Calc 62 (60-180) mg/dL VLDL Cholesterol 13 (5-55) mg/dL HDL Cholesterol 40 (40-60) mg/dL Cholesterol/HDL Ratio 2.9 L (3.3-6.0) 07/03/18 07/03/18 Range/Units 06:54 11:22 WBC (4.0-11.0) K/uL RBC (4.50-5.90) M/uL Hgb (13.0-17.0) g/dL Hct (38.0-50.0) % MCV (80.0-98.0) fL MCH (27.0-32.0) pg MCHC (31.0-37.0) g/dL RDW Std Deviation (28.0-62.0) fl RDW Coeff of [place] (11.0-15.0) % Plt Count (150-400) K/uL MPV (7.40-12.00) fL Neut % (Auto) (48.0-80.0) % Lymph % (Auto) (16.0-40.0) % [place] % (Auto) (0.0-15.0) % Eos % (Auto) (0.0-7.0) % Baso % (Auto) (0.0-1.5) % Neut # (Auto) (1.4-5.7) K/uL Lymph # (Auto) (0.6-2.4) K/uL [place] # (Auto) (0.0-0.8) K/uL Eos # (Auto) (0.0-0.7) K/uL Baso # (Auto) (0.0-0.1) K/uL Nucleated RBC % /100WBC Nucleated RBCs # K/uL INR Sodium (136-148) mmol/L Potassium (3.5-5.1) mmol/L Chloride (98-107) mmol/L Carbon Dioxide (21.0-32.0) mmol/L BUN (7.0-18.0) mg/dL Creatinine (0.8-1.3) mg/dL Est Cr Clr Drug Dosing mL/min Estimated GFR (MDRD) ml/min Glucose (74-106) mg/dL POC Glucose 123 H 147 H (60-110) mg/dL Hemoglobin A1c (4.5-6.2) % Calcium (8.5-10.1) mg/dL Total Bilirubin (0.2-1.0) mg/dL AST (15-37) IU/L ALT (14-63) IU/L Alkaline Phosphatase (46-116) U/L Troponin I (0.000-0.056) ng/mL B-Natriuretic Peptide (<100) PG/ML Total Protein (6.4-8.2) g/dL Albumin (3.4-5.0) g/dL Globulin (2.0-3.5) g/dL Albumin/Globulin Ratio (1.3-2.8) Triglycerides (0-200) mg/dL Cholesterol (50-200) mg/dL LDL Cholesterol, Calc (60-180) mg/dL VLDL Cholesterol (5-55) mg/dL HDL Cholesterol (40-60) mg/dL Cholesterol/HDL Ratio (3.3-6.0) Med Orders - Current: Current Medications Acetaminophen (Tylenol) 650 mg PO Q4H PRN PRN Reason: Pain (Mild 1-3)/fever Albuterol/Ipratropium (Duoneb 3.0-0.5 Mg/3 Ml) 3 ml NEB Q4HRRT PRN PRN Reason: Shortness of Breath Aspirin (Aspirin) 81 mg PO DAILY [facility] Last Admin: 07/03/18 08:58 Dose: 81 mg Clopidogrel Bisulfate (Plavix) 75 mg PO DAILY [facility] Last Admin: 07/03/18 08:58 Dose: 75 mg Enoxaparin Sodium (Lovenox) 140 mg SUBCUT Q12H [facility] Last Admin: 07/03/18 06:03 Dose: 140 mg HCTZ/Losartan Potassium (Hyzaar 50-12.5 Mg) 1 tab PO DAILY [facility] Last Admin: 07/03/18 11:46 Dose: 1 tab Insulin Aspart (Novolog) 0 unit SUBCUT TIDAC [facility]; Protocol Last Admin: 07/03/18 11:30 Dose: Not Given Isosorbide Mononitrate (Imdur) 30 mg PO DAILY [facility] Last Admin: 07/03/18 08:57 Dose: 30 mg Labetalol HCl (Normodyne) 20 mg IVPUSH Q4H PRN; Protocol PRN Reason: Hypertension Last Admin: 07/02/18 20:59 Dose: 20 mg Metoprolol Succinate (Toprol Xl) 25 mg PO DAILY [facility] Last Admin: 07/03/18 08:58 Dose: 25 mg Morphine Sulfate (Morphine) 2 mg IVPUSH Q2H PRN PRN Reason: Pain (severe 7-10) Stop: 07/03/18 17:06 Nitroglycerin (Nitrostat) 0.4 mg SL Q5M PRN PRN Reason: Chest Pain Last Admin: 07/02/18 12:50 Dose: 0.4 mg Sodium Chloride (Saline Flush) 10 ml FLUSH ASDIRECTED PRN PRN Reason: Keep Vein Open Sodium Chloride (Saline Flush) 2.5 ml FLUSH ASDIRECTED PRN PRN Reason: Keep Vein Open Sodium Chloride (Saline Flush) 10 ml FLUSH ASDIRECTED PRN PRN Reason: Keep Vein Open Sodium Chloride (Saline Flush) 2.5 ml FLUSH ASDIRECTED PRN PRN Reason: Keep Vein Open Discontinued Medications Albuterol/Ipratropium (Duoneb 3.0-0.5 Mg/3 Ml) 3 ml NEB ONETIME ONE Stop: 07/02/18 12:41 Last Admin: 07/02/18 12:46 Dose: 3 ml Aspirin (Aspirin) 81 mg PO ONETIME ONE Stop: 07/02/18 12:41 Last Admin: 07/02/18 12:44 Dose: 81 mg Atorvastatin Calcium (Lipitor) 80 mg PO ONETIME ONE Stop: 07/02/18 18:11 Last Admin: 07/02/18 18:31 Dose: 80 mg Labetalol HCl (Normodyne) Confirm Administered Dose 20 mg .ROUTE .STK-MED ONE Stop: 07/02/18 20:16 Last Admin: 07/02/18 21:15 Dose: Not Given Nitroglycerin (Nitro-Bid 2%) 1 gm TOP ONETIME ONE Stop: 07/02/18 12:53 Last Admin: 07/02/18 12:59 Dose: 1 gm - Exam General: Alert, Oriented HEENT: Pupils Equal, Pupils Reactive Neck: Supple, Trachea Midline, No JVD, No Thyromegaly Lungs: Clear to Auscultation, Normal Respiratory Effort Cardiovascular: Regular Rate, Regular Rhythm, No Murmurs GI/Abdominal Exam: Normal Bowel Sounds, Soft, Non-Tender, No Distention Back Exam: Normal Inspection Extremities: Normal Inspection Skin: Warm, Dry Neurological: No New Focal Deficit - Problem List & Annotations (1) Chest pain, rule out acute myocardial infarction SNOMED Code(s): 05208451 Code(s): R07.9 - CHEST PAIN, UNSPECIFIED Status: Acute Current Visit: Yes (2) Diabetes mellitus, insulin dependent (IDDM), controlled SNOMED Code(s): 50166960 Code(s): E11.9 - TYPE 2 DIABETES MELLITUS WITHOUT COMPLICATIONS; Z79.4 - PRISON (CURRENT) USE OF INSULIN Status: Acute Current Visit: Yes (3) History of heart artery stent SNOMED Code(s): 708616724, 120089356 Code(s): Z95.5 - PRESENCE OF CORONARY ANGIOPLASTY IMPLANT AND GRAFT Status : Acute Current Visit: Yes (4) Hyperlipidemia SNOMED Code(s): 49995130 Code(s): E78.5 - HYPERLIPIDEMIA, UNSPECIFIED Status: Acute Current Visit : Yes (5) Hypertension SNOMED Code(s): 85115729 Code(s): I10 - ESSENTIAL (PRIMARY) HYPERTENSION Status: Acute Current Visit: Yes Qualifiers: Hypertension type: essential hypertension Qualified Code(s): I10 - Essential (primary) hypertension (6) Tobacco abuse disorder SNOMED Code(s): 500274278 Code(s): Z72.0 - TOBACCO USE Status: Acute Current Visit: Yes (7) Hypertension, uncontrolled SNOMED Code(s): 13394859, 06773888 Code(s): I10 - ESSENTIAL (PRIMARY) HYPERTENSION Status: Acute Current Visit: Yes (8) Morbid (severe) obesity due to excess calories SNOMED Code(s): 237990357 Code(s): E66.01 - MORBID (SEVERE) OBESITY DUE TO EXCESS CALORIES Status: Acute Current Visit: Yes (9) COPD (chronic obstructive pulmonary disease) SNOMED Code(s): 78036186 Code(s): J44.9 - CHRONIC OBSTRUCTIVE PULMONARY DISEASE, UNSPECIFIED Status : Acute Current Visit: Yes (10) Snoring SNOMED Code(s): 96259959 Code(s): R06.83 - SNORING Status: Acute Current Visit: Yes - Problem List Review Problem List Initiated/Reviewed/Updated: Yes - My Orders Last 24 Hours: My Active Orders 07/02/18 14:30 Telemetry Monitoring [Cardiac Monitoring] [RC] . DIRECTED 07/02/18 17:04 Oxygen Therapy [RC] PRN Up ad Priya [RC] ASDIRECTED Vital Signs [RC] Q4H Acetaminophen [Tylenol] 650 mg PO Q4H PRN Morphine 2 mg IVPUSH Q2H PRN Sodium Chloride 0.9% [Saline Flush] 10 ml FLUSH ASDIRECTED PRN Sodium Chloride 0.9% [Saline Flush] 2.5 ml FLUSH ASDIRECTED PRN Peripheral IV Insertion Adult [OM.PC] Routine Resuscitation Status Routine 07/02/18 17:05 Cardiac Monitoring [RC] Q8H Pulse Oximetry [RC] PRN Sequential Compression Device [OM.PC] Per Unit Routine 07/02/18 19:31 Labetalol [Normodyne] 20 mg IVPUSH Q4H PRN 07/02/18 21:18 Communication Order [RC] DAILY 07/03/18 00:05 Echo Comp wo Cont [US] Stat 07/03/18 06:00 Enoxaparin [Lovenox] 140 mg SUBCUT Q12H 07/03/18 07:30 Insulin Aspart [NovoLOG] See Protocol SUBCUT TIDAC 07/03/18 09:00 Aspirin 81 mg PO DAILY Clopidogrel [Plavix] 75 mg PO DAILY Isosorbide Mononitrate [Imdur] 30 mg PO DAILY Metoprolol Succinate [Toprol XL] 25 mg PO DAILY 07/03/18 11:30 Hydrochlorothiazide/Losartan [Hyzaar 50-12.5 MG] 1 tab PO DAILY 07/03/18 12:12 RT Aerosol Therapy [RC] ASDIRECTED Albuterol/Ipratropium [DuoNeb 3.0-0.5 MG/3 ML] 3 ml NEB Q4HRRT PRN 07/03/18 12:15 Incentive Spirometry [RT Incentive Spirometry] [RC] Q2HWA 07/03/18 12:16 PROCALCITONIN [REF] Urgent 07/03/18 12:38 Communication Order [RC] ROUTINE 07/03/18 Breakfast ADA Diabetic [[place] [employer] Diet] [DIET] 07/04/18 05:11 CBC W/O DIFF,HEMOGRAM [HEME] AM COMPREHENSIVE METABOLIC PN,CMP [CHEM] AM 07/05/18 05:11 CBC W/O DIFF,HEMOGRAM [HEME] AM COMPREHENSIVE METABOLIC PN,CMP [CHEM] AM 07/06/18 05:11 COMPREHENSIVE METABOLIC PN,CMP [CHEM] AM - Plan Plan:: Unstable angina due to smoking and u/c HTN - troponins times 3 negative continue aspirin and plavix , imdur 30 mg po daily , metoprolol 25 mg po daily , will continue patient with atorvastatin 80 mg po at bedtime .Lipid profile nl , Hb A1c was He was given in [place] one dose of Lovenox 1mg/kg , will continue patient with lovenox full dose q 12 h , BP control .Patient was advised to stop smoking, lipid panel , Hb A1 c 6.5 , f/upcardiac ECHo For HtN u/c - losartan /hctz 100/25 mg po daily , amlodipine 10 mg po daily, f/ up BP For DM: insulin aspart on sliding scale ac TID and at bedtime, hold po medications, d/c pioglitazone due to morbid obesity
[2018-07-03] MEDS ORDERED: Hydrochlorothiazide/Losartan 12.5-50 mg Tab PO ONE (14:29)
[2018-07-03] MEDS: amLODIPine 5 MG Tab PO SCH (22:00)
[2018-07-04] MEDS: Enoxaparin 150 MG/1 ML Syringe SUBCUT SCH (05:46)
[2018-07-04 05:50] LABS: CHLORIDE,CL 103 mmol/L (98-107); SODIUM,NA 139 mmol/L (136-148)
[2018-07-04] MEDS: Insulin Aspart 100 Units/ML 3 ML Pen SUBCUT SCH ×2 (06:35→12:13)
[2018-07-04] MEDS: Metoprolol Succinate 25 MG Tab.ER PO SCH (08:15)
[2018-07-04] MEDS: Clopidogrel 75 MG Tab PO SCH (08:15)
[2018-07-04] MEDS: Aspirin 81 MG Tab.Chew PO SCH (08:15)
[2018-07-04] MEDS: amLODIPine 5 MG Tab PO SCH (08:15)
[2018-07-04] MEDS: Isosorbide Mononitrate 30 MG Tab.ER PO SCH (08:15)
[2018-07-04] MEDS ORDERED: hydrALAZINE 25 MG Tab PO SCH (08:33)
[2018-07-04] MEDS ORDERED: Hydrochlorothiazide/Losartan 12.5-50 mg Tab PO SCH (09:00)
--- NOTE | 2018-07-04 12:36 | PCM.DCSUM1 ---
Discharge Summary - Hospital Course HPI Initial Comments: Patient 62 y old man with Hx of LA in April 2017 s/p stent in [place] who is still smoking 1 PPD presented to ER today due to chest pain that was localized left side of chest and was pressure-like 5/10 intensity. Patient already smoked few ciggarets by the time the chest pain started. 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 His pain lasted for about 3 h as per patient and was getting better , subsided completely in Er with Nitroglycerin. Patient BP at arrival in Er was 233/127 [id number]. He had stress test done in November 2017 and was told was normal Diagnosis: Stroke: No - Discharge Data Discharge Date: 07/04/18 Discharge Disposition: Home, Self-Care 01 Condition: Good - Discharge Diagnosis/Problem(s) (1) Chest pain, rule out acute myocardial infarction SNOMED Code(s): 97326344 ICD Code: R07.9 - CHEST PAIN, UNSPECIFIED Status: Acute (2) Diabetes mellitus, insulin dependent (IDDM), controlled SNOMED Code(s): 02042430 ICD Code: E11.9 - TYPE 2 DIABETES MELLITUS WITHOUT COMPLICATIONS; Z79.4 - HALF-WAY (CURRENT) USE OF INSULIN Status: Acute (3) History of heart artery stent SNOMED Code(s): 315791812, 449158490 ICD Code: Z95.5 - PRESENCE OF CORONARY ANGIOPLASTY IMPLANT AND GRAFT Status : Acute (4) Hyperlipidemia SNOMED Code(s): 39168869 ICD Code: E78.5 - HYPERLIPIDEMIA, UNSPECIFIED Status: Acute (5) Hypertension SNOMED Code(s): 55766297 ICD Code: I10 - ESSENTIAL (PRIMARY) HYPERTENSION Status: Acute Qualifiers: Hypertension type: essential hypertension Qualified Code(s): I10 - Essential (primary) hypertension (6) Tobacco abuse disorder SNOMED Code(s): 173709227 ICD Code: Z72.0 - TOBACCO USE Status: Acute (7) Hypertension, uncontrolled SNOMED Code(s): 51325570, 62141445 ICD Code: I10 - ESSENTIAL (PRIMARY) HYPERTENSION Status: Acute (8) Morbid (severe) obesity due to excess calories SNOMED Code(s): 761891592 ICD Code: E66.01 - MORBID (SEVERE) OBESITY DUE TO EXCESS CALORIES Status: Acute (9) COPD (chronic obstructive pulmonary disease) SNOMED Code(s): 14235661 ICD Code: J44.9 - CHRONIC OBSTRUCTIVE PULMONARY DISEASE, UNSPECIFIED Status : Acute (10) Snoring SNOMED Code(s): 95586165 ICD Code: R06.83 - SNORING Status: Acute - Patient Summary/Data Hospital Course: Patient admitted in the hospital with acute coronary syndrome, uncontrolled blood pressure he had 3 sets of cardiac enzymes negative, no events in telemetry . During the hospital stay he did not have any chest pain and he was able to walk on the floor without any chest pain. His blood pressure was uncontrolled and his medication was titrated he was given losartan 100 mg by mouth daily hydrochlorothiazide 25 mg by mouth daily and hydralazine 25 mg by mouth 3 times a day. His hemoglobin A1c was 6.5 and his lipid profile was normal. Patient was continued on his home medications he was on aspirin 81 mg by mouth daily on atorvastatin 80 mg by mouth daily and on Plavix 75 mg by mouth daily. Patient was told that he has to stop smoking . His blood pressures was controlled with the above medication.During his hospital stay he was also placed on Lovenox 1 mg/kg every 12 hours for 48 hours. 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 Price will schedule appointment. Patient actos was discontinued as he has morbid obesity and he was given metformin 1000 mg twice a day and Januvia 50 mg by mouth daily patient to follow-up his blood pressures and diabetes with his PCP. He had echocardiogram done, report pending follow- up report with his PCP. - Patient Instructions Diet: Usual Diet as Tolerated Activity: As Tolerated Driving: May Drive Today - Discharge Plan Prescriptions/Med Rec: hydrALAZINE [Apresoline] 25 mg PO TID #90 tablet Hydrochlorothiazide/Losartan [Hyzaar 50-12.5 MG] 2 tab PO DAILY 30 Days #60 tablet metFORMIN HCl [Fortamet] 1,000 mg PO BID 30 Days #60 tab.er.24 Nitroglycerin [Nitrostat] 0.4 mg SL Q5M PRN #15 tab.sl PRN Reason: Chest Pain SitaGLIPtin [Januvia] 50 mg PO DAILY #30 tablet Home Medications: Home Meds Aspirin 1 tab PO DAILY 12/14/17 [History] Clopidogrel [Plavix] 75 mg PO DAILY 12/14/17 [History] Metoprolol Succinate [Toprol XL] 25 mg PO DAILY 12/14/17 [History] Hydrochlorothiazide/Losartan [Hyzaar 50-12.5 MG] 2 tab PO DAILY 30 Days #60 tablet 07/04/18 [Rx] Isosorbide Mononitrate [Imdur] 30 mg PO DAILY tab.er 07/04/18 [Rx] Nitroglycerin [Nitrostat] 0.4 mg SL Q5M PRN #15 tab.sl 07/04/18 [Rx] SitaGLIPtin [Januvia] 50 mg PO DAILY #30 tablet 07/04/18 [Rx] hydrALAZINE [Apresoline] 25 mg PO TID #90 tablet 07/04/18 [Rx] metFORMIN HCl [Fortamet] 1,000 mg PO BID 30 Days #60 tab.er.24 07/04/18 [Rx] Patient Handouts: Chronic Obstructive Pulmonary Disease, [id number], Nonspecific Chest Pain, [id number], Hypertension, [id number]-Errt, Acute Coronary Syndrome Referrals: PCP,None [Primary Care Provider] - (Please call Primary care provider and schedule a follow-up appointment for one week from today.) - Discharge Summary/Plan Comment DC Time >30 min.: Yes - General Info Date of Service: 07/04/18 Admission Dx/Problem (Free Text: Admission Diagnosis/Problem Admission Diagnosis/Problem Acute coronary syndrome - Review of Systems General: Reports: No Symptoms HEENT: Reports: No Symptoms Pulmonary: Reports: No Symptoms Cardiovascular: Reports: No Symptoms Gastrointestinal: Reports: No Symptoms Genitourinary: Reports: No Symptoms Musculoskeletal: Reports: No Symptoms Skin: Reports: No Symptoms Neurological: Reports: No Symptoms Psychiatric: Reports: No Symptoms - Patient Data Vitals - Most Recent: Last Vital Signs Temp 98.1 F 07/04/18 08:00 Pulse 74 07/04/18 08:15 Resp 16 07/04/18 08:00 BP 156/72 H 07/04/18 10:17 Pulse Ox 93 L 07/04/18 08:00 Weight - Most Recent: 298 lb 8 oz I&O - Last 24 hours: Intake & Output 07/03/18 07/04/18 07/04/18 22:59 06:59 14:59 Intake Total 240 520 Balance 240 520 Lab Results - Last 24 hrs: Laboratory Results - last 24 hr 07/03/18 07/04/18 07/04/18 Range/Units 16:42 05:05 05:05 WBC 7.30 (4.0-11.0) K/uL RBC 5.14 (4.50-5.90) M/uL Hgb 15.5 (13.0-17.0) g/dL Hct 46.1 (38.0-50.0) % MCV 89.7 (80.0-98.0) fL MCH 30.2 (27.0-32.0) pg MCHC 33.6 (31.0-37.0) g/dL RDW Std Deviation 45.1 (28.0-62.0) fl RDW Coeff of [place] 14 (11.0-15.0) % Plt Count 162 (150-400) K/uL MPV 10.30 (7.40-12.00) fL Nucleated RBC % 0.0 /100WBC Nucleated RBCs # 0 K/uL Sodium 139 (136-148) mmol/L Potassium 3.9 (3.5-5.1) mmol/L Chloride 103 (98-107) mmol/L Carbon Dioxide 31.5 (21.0-32.0) mmol/L BUN 13 (7.0-18.0) mg/dL Creatinine 1.0 (0.8-1.3) mg/dL Est Cr Clr Drug Dosing 81.11 mL/min Estimated GFR (MDRD) > 60.0 ml/min Glucose 122 H (74-106) mg/dL POC Glucose 86 (60-110) mg/dL Calcium 9.5 (8.5-10.1) mg/dL Total Bilirubin 0.6 (0.2-1.0) mg/dL AST 15 (15-37) IU/L ALT 29 (14-63) IU/L Alkaline Phosphatase 94 (46-116) U/L Total Protein 7.3 (6.4-8.2) g/dL Albumin 3.5 (3.4-5.0) g/dL Globulin 3.8 H (2.0-3.5) g/dL Albumin/Globulin Ratio 0.9 L (1.3-2.8) 07/04/18 Range/Units 06:07 WBC (4.0-11.0) K/uL RBC (4.50-5.90) M/uL Hgb (13.0-17.0) g/dL Hct (38.0-50.0) % MCV (80.0-98.0) fL MCH (27.0-32.0) pg MCHC (31.0-37.0) g/dL RDW Std Deviation (28.0-62.0) fl RDW Coeff of [place] (11.0-15.0) % Plt Count (150-400) K/uL MPV (7.40-12.00) fL Nucleated RBC % /100WBC Nucleated RBCs # K/uL Sodium (136-148) mmol/L Potassium (3.5-5.1) mmol/L Chloride (98-107) mmol/L Carbon Dioxide (21.0-32.0) mmol/L BUN (7.0-18.0) mg/dL Creatinine (0.8-1.3) mg/dL Est Cr Clr Drug Dosing mL/min Estimated GFR (MDRD) ml/min Glucose (74-106) mg/dL POC Glucose 116 H (60-110) mg/dL Calcium (8.5-10.1) mg/dL Total Bilirubin (0.2-1.0) mg/dL AST (15-37) IU/L ALT (14-63) IU/L Alkaline Phosphatase (46-116) U/L Total Protein (6.4-8.2) g/dL Albumin (3.4-5.0) g/dL Globulin (2.0-3.5) g/dL Albumin/Globulin Ratio (1.3-2.8) Med Orders - Current: Current Medications Acetaminophen (Tylenol) 650 mg PO Q4H PRN PRN Reason: Pain (Mild 1-3)/fever Albuterol/Ipratropium (Duoneb 3.0-0.5 Mg/3 Ml) 3 ml NEB Q4HRRT PRN PRN Reason: Shortness of Breath Amlodipine Besylate (Norvasc) 10 mg PO DAILY [facility] Last Admin: 07/04/18 08:15 Dose: 10 mg Aspirin (Aspirin) 81 mg PO DAILY [facility] Last Admin: 07/04/18 08:15 Dose: 81 mg Clopidogrel Bisulfate (Plavix) 75 mg PO DAILY [facility] Last Admin: 07/04/18 08:15 Dose: 75 mg Enoxaparin Sodium (Lovenox) 140 mg SUBCUT Q12H [facility] Last Admin: 07/04/18 05:46 Dose: 140 mg HCTZ/Losartan Potassium (Hyzaar 50-12.5 Mg) 2 tab PO DAILY [facility] Last Admin: 07/04/18 08:16 Dose: 2 tab Hydralazine HCl (Apresoline) 25 mg PO TID [facility] Last Admin: 07/04/18 10:17 Dose: 25 mg Insulin Aspart (Novolog) 0 unit SUBCUT TIDAC [facility]; Protocol Last Admin: 07/04/18 12:13 Dose: Not Given Isosorbide Mononitrate (Imdur) 30 mg PO DAILY [facility] Last Admin: 07/04/18 08:15 Dose: 30 mg Labetalol HCl (Normodyne) 20 mg IVPUSH Q4H PRN; Protocol PRN Reason: Hypertension Last Admin: 07/02/18 20:59 Dose: 20 mg Metoprolol Succinate (Toprol Xl) 25 mg PO DAILY [facility] Last Admin: 07/04/18 08:15 Dose: 25 mg Nitroglycerin (Nitrostat) 0.4 mg SL Q5M PRN PRN Reason: Chest Pain Last Admin: 07/02/18 12:50 Dose: 0.4 mg Sodium Chloride (Saline Flush) 10 ml FLUSH ASDIRECTED PRN PRN Reason: Keep Vein Open Sodium Chloride (Saline Flush) 2.5 ml FLUSH ASDIRECTED PRN PRN Reason: Keep Vein Open Sodium Chloride (Saline Flush) 10 ml FLUSH ASDIRECTED PRN PRN Reason: Keep Vein Open Sodium Chloride (Saline Flush) 2.5 ml FLUSH ASDIRECTED PRN PRN Reason: Keep Vein Open Discontinued Medications Albuterol/Ipratropium (Duoneb 3.0-0.5 Mg/3 Ml) 3 ml NEB ONETIME ONE Stop: 07/02/18 12:41 Last Admin: 07/02/18 12:46 Dose: 3 ml Aspirin (Aspirin) 81 mg PO ONETIME ONE Stop: 07/02/18 12:41 Last Admin: 07/02/18 12:44 Dose: 81 mg Atorvastatin Calcium (Lipitor) 80 mg PO ONETIME ONE Stop: 08/29/18 18:11 Last Admin: 07/02/18 18:31 Dose: 80 mg HCTZ/Losartan Potassium (Hyzaar 50-12.5 Mg) 1 tab PO DAILY [facility] Last Admin: 07/03/18 11:46 Dose: 1 tab HCTZ/Losartan Potassium (Hyzaar 50-12.5 Mg) 1 tab PO ONETIME ONE Stop: 07/03/18 14:30 Last Admin: 07/03/18 15:29 Dose: 1 tab Labetalol HCl (Normodyne) Confirm Administered Dose 20 mg .ROUTE .STK-MED ONE Stop: 07/02/18 20:16 Last Admin: 07/02/18 21:15 Dose: Not Given Morphine Sulfate (Morphine) 2 mg IVPUSH Q2H PRN PRN Reason: Pain (severe 7-10) Stop: 07/03/18 17:06 Nitroglycerin (Nitro-Bid 2%) 1 gm TOP ONETIME ONE Stop: 07/02/18 12:53 Last Admin: 07/02/18 12:59 Dose: 1 gm - Exam General: Reports: Alert, Oriented HEENT: Reports: Pupils Equal, Pupils Reactive Neck: Reports: Supple, Trachea Midline, No JVD, No Thyromegaly Lungs: Reports: Clear to Auscultation, Normal Respiratory Effort GI/Abdominal Exam: Normal Bowel Sounds, Soft, Non-Tender, No Organomegaly Extremities: Normal Inspection Skin: Reports: Warm, Dry Wound/Incisions: Reports: Healing Well Neurological: Reports: No New Focal Deficit Psy/Mental Status: Reports: Alert, Normal Affect
== END 2018-07-04 15:08 | disposition home or self-care (01) ==
LOC: MW.ED 12:26 → MW.MS 14:10
PROVIDERS: ADMIT Internal Medicine; ATTEND Internal Medicine
DX: R07.9 Chest pain, unspecified (principal); E11.9 Type 2 diabetes mellitus without complications; Z95.5 Presence of coronary angioplasty implant and graft; E78.5 Hyperlipidemia, unspecified; I10 Essential (primary) hypertension; I20.0 Unstable angina; J44.9 Chronic obstructive pulmonary disease, unspecified; J98.11 Atelectasis; E66.01 Morbid (severe) obesity due to excess calories; Z68.41 Body mass index [BMI] 40.0-44.9, adult; F17.210 Nicotine dependence, cigarettes, uncomplicated; Z79.02 Long term (current) use of antithrombotics/antiplatelets; Z79.82 Long term (current) use of aspirin; Z79.84 Long term (current) use of oral hypoglycemic drugs; Z79.899 Other long term (current) drug therapy
CPT/HCPCS: 36415; 71045; 80053; 80061; 82962; 83036; 83880; 84145; 84484; 85025; 85027; 85610; 93005; 93306; 94640; 99285; A9270; J1650; 96372; 96374; G0378; J7620-GY

== ENCOUNTER 2018-07-31 20:59 | Emergency (ER) | payer OTHER ==
--- NOTE | 2018-07-31 21:32 | EDM.PDOC ---
ED HPI GENERAL MEDICAL PROBLEM - General Chief Complaint: Lower Extremity Injury/Pain Stated Complaint: HEEL OF RT FOOT HURTS Time Seen by Provider: 07/31/18 21:26 Source of Information: Reports: Patient History Limitations: Reports: No Limitations - History of Present Illness INITIAL COMMENTS - FREE TEXT/NARRATIVE: HISTORY AND PHYSICAL: History of present illness: 63-year-old male presenting to emergency department with cc of right heel pain 1 day. Patient states that yesterday began to have some pain in his right heel. States the pain is worse when he is up walking especially when he is placing pressure on the ball of his foot. The pain is in his heel and going up into his Achilles. He denies any significant trauma to the area. Denies any loss of sensation, range of motion, or strength. Currently having no other symptoms. On exam patient has tenderness to palpation along the plantar fascia. No other significant finding Review of systems: As per history of present illness and below otherwise all systems reviewed and negative. Past medical history: As per history of present illness and as reviewed below otherwise noncontributory. Surgical history: As per history of present illness and as reviewed below otherwise noncontributory. Social history: No reported history of drug or alcohol abuse. Family history: As per history of present illness and as reviewed below otherwise noncontributory. Physical exam: HEENT: Atraumatic, normocephalic, pupils reactive, negative for conjunctival pallor or scleral icterus, mucous membranes moist, throat clear, neck supple, nontender, trachea midline. Lungs: Clear to auscultation, breath sounds equal bilaterally, chest nontender. Heart: S1S2, regular, negative for clicks, rubs, or JVD. Abdomen: Soft, nondistended, nontender. Negative for masses or hepatosplenomegaly. Negative for costovertebral tenderness. Pelvis: Stable nontender. Genitourinary: Deferred. Rectal: Deferred. Extremities: Atraumatic, negative for cords or calf pain. Neurovascular unremarkable. Neuro: Awake, alert, oriented. Cranial nerves II through XII unremarkable. Cerebellum unremarkable. Motor and sensory unremarkable throughout. Exam nonfocal. Diagnostics: Right foot x-ray Therapeutics: [] Impression: Right heel pain Plantar fasciitis Plan: Right x-ray of foot was unremarkable for acute osseous injuries. Patient's symptoms and signs most likely suspicious for plantar fasciitis. This was explained to the patient. He was given information on the diagnosis and instructed to use naproxen, or other anti-inflammatories for pain and swelling. We also gave him information on exercises to do. Suggested he follow-up with primary care provider and gave him information about this. In addition I did refill his type 2 diabetes medication as well as blood pressure medication as he is out and his normal primary care provider is in [place]. We discussed establishing a primary care provider here which he is in agreement. Patient was discharged in good condition with instructions to return to emergency department if he had a new or worsening symptoms. Definitive disposition and diagnosis as appropriate pending reevaluation and review of above. Right Feet Pain Score (Numeric/FACES): 8 - Related Data Allergies Allergy/AdvReac Type Severity Reaction Status Date / Time No Known Allergies Allergy Verified 07/31/18 21:18 Home Meds: Home Meds Aspirin 1 tab PO DAILY 12/14/17 [History] Clopidogrel [Plavix] 75 mg PO DAILY 12/14/17 [History] Metoprolol Succinate [Toprol XL] 25 mg PO DAILY 12/14/17 [History] Hydrochlorothiazide/Losartan [Hyzaar 50-12.5 MG] 2 tab PO DAILY 30 Days #60 tablet 07/04/18 [Rx] Isosorbide Mononitrate [Imdur] 30 mg PO DAILY tab.er 07/04/18 [Rx] Nitroglycerin [Nitrostat] 0.4 mg SL Q5M PRN #15 tab.sl 07/04/18 [Rx] SitaGLIPtin [Januvia] 50 mg PO DAILY #30 tablet 07/04/18 [Rx] hydrALAZINE [Apresoline] 25 mg PO TID #90 tablet 07/04/18 [Rx] metFORMIN HCl [Fortamet] 1,000 mg PO BID 30 Days #60 tab.er.24 07/04/18 [Rx] Past Medical History - Past Health History Medical/Surgical History: Denies Medical/Surgical History Cardiovascular History: Reports: Hypertension, [place] Endocrine/Metabolic History: Reports: Diabetes, Type II - Infectious Disease History Infectious Disease History: Reports: Chicken Pox, Measles, Mumps, Shingles - Past Surgical History Cardiovascular Surgical History: Reports: Other (See Below) Other Cardiovascular Surgeries/Procedures: stent april 2017 Social & Family History - Family History Family Medical History: Noncontributory - Caffeine Use Caffeine Use: Reports: Soda Review of Systems - Review of Systems Review Of Systems: ROS reveals no pertinent complaints other than HPI. ED EXAM, GENERAL - Physical Exam Exam: See Below Course - Vital Signs Last Recorded V/S: Last Vital Signs Temp 97.7 F 07/31/18 21:16 Pulse 104 H 07/31/18 21:16 Resp 20 07/31/18 21:16 BP 148/74 H 07/31/18 21:16 Pulse Ox 95 07/31/18 21:16 - Orders/Labs/Meds Orders: Active Orders 24 hr Category Date Time Status Foot Comp Min 3V Rt [CR] Stat Exams 07/31/18 21:44 Taken Departure - Departure Time of Disposition: 22:25 Disposition: Home, Self-Care 01 Condition: Good Clinical Impression: Right foot pain, Plantar fasciitis of right foot - Discharge Information Referrals: PCP,None [Primary Care Provider] - Forms: ED Department Discharge Additional Instructions: My general discharge The following information is given to patients seen in the emergency department who are being discharged to home. This information is to outline your options for follow-up care. We provide all patients seen in our emergency department with a follow-up referral. The need for follow-up, as well as the timing and circumstances, are variable depending upon the specifics of your emergency department visit. If you don't have a primary care physician on staff, we will provide you with a referral. We always advise you to contact your personal physician following an emergency department visit to inform them of the circumstance of the visit and for follow-up with them and/or the need for any referrals to a consulting specialist. The emergency department will also refer you to a specialist when appropriate. This referral assures that you have the opportunity for follow-up care with a specialist. All of these measure are taken in an effort to provide you with optimal care, which includes your follow-up. Under all circumstances we always encourage you to contact your private physician who remains a resource for coordinating your care. When calling for follow-up care, please make the office aware that this follow-up is from your recent emergency room visit. If for any reason you are refused follow-up, please contact the [facility] Emergency Department at and asked to speak to the emergency department charge nurse. G[facility] [address] [place] [id number] Please call above number to follow-up with a primary care provider. Be sure to tell them that you were seen in the emergency department and they wish for you to be seen as soon as possible. Use anti-inflammatories such as naproxen and ibuprofen for inflammation. Take regularly throughout the day. Return to emergency department if any new or worsening symptoms. - My Orders Last 24 Hours: My Active Orders 07/31/18 21:44 Foot Comp Min 3V Rt [CR] Stat - Assessment/Plan Last 24 Hours: My Active Orders 07/31/18 21:44 Foot Comp Min 3V Rt [CR] Stat
--- NOTE | 2018-08-01 10:16 | CR ---
EXAM DATE: 07/31/18 PATIENT'S AGE: 63 Patient: SOMMER BEJARANO Facility: [place], [place] Site . Site : [id number] Study: XRay Extremity Right foot [id number]/27/2018 10:07:40 PM Ordering Physician: Jerome Padron Final Report: HISTORY: Heel pain for 1 day when weight-bearing. COMPARISON: None available. FINDINGS: The right foot is examined with AP, lateral, and oblique views. There is no sign of fracture or dislocation. The soft tissues are normal in appearance without sign of radio-opaque foreign body. There are moderate rounded ossifications of the posterior aspect of the longitudinal ligament, adjacent to the inferior aspect of the calcaneus. These are consistent with injury to the longitudinal ligament. There is no sign of an inferior calcaneal spur. There are rounded calcifications of the distal Achilles tendon at the insertion on the posterior calcaneus, consistent with previous injury to the tendon. There is no sign of a posterior calcaneal spur. IMPRESSION: NO SIGN OF ACUTE OSSEOUS INJURY TO THE FOOT. ROUNDED OSSIFICATIONS INDICATING PREVIOUS INJURY TO THE POSTERIOR ASPECT OF THE LONGITUDINAL LIGAMENT AND OF THE DISTAL PORTION OF THE ACHILLES TENDON. NO SIGN OF CALCANEAL SPURS. Dictated by Armand Estrella MD @ Jul 31 2018 10:12PM (Electronic Signature) Report Signed by Proxy. KATELIN
== END 2018-07-31 22:42 | disposition home or self-care (01) ==
LOC: MW.ED 20:59
DX: M72.2 Plantar fascial fibromatosis (principal); I10 Essential (primary) hypertension; E11.9 Type 2 diabetes mellitus without complications; Z79.84 Long term (current) use of oral hypoglycemic drugs; Z79.899 Other long term (current) drug therapy
CPT/HCPCS: 73630-26-RT; 73630-RT; 99283